=== PATIENT | female | born 1955 | race Caucasian/White ===

== ENCOUNTER 2017-05-06 13:30 | Inpatient (IN) | payer OTHER ==
[~2017-05-06] VITALS: Ht 162.6 cm; Wt 87.5 kg
[~2017-05-06 13:30] MED LIST: AMBIEN5 MG PO; CALAN PO; CIPRO500 MG PO; LISINOPRIL40 MG PO; SYNTH PO; TYLENOL ARTHRI650 MG PO; ZOLOFT25 MG PO
[2017-05-10] MEDS ORDERED: FLAGYL500MG PO (08:41)
[2017-05-10] MEDS ORDERED: TYLENOL-CODEINE1 TA1 PO (08:41)
[2017-05-10] MEDS ORDERED: COLACE100 MG PO (08:41)
== END 2017-05-10 09:48 | disposition home or self-care (01) | DRG 743 ==
LOC: O/R 05-09 05:10 → RECOVERY 05-09 07:00 → OB/GYN 05-09 11:07 → RECOVERY 05-09 13:30 → OB/GYN 05-10 09:48
PROVIDERS: Obstetrics & Gynecology
PROC: 0UT74ZZ Resection of Bilateral Fallopian Tubes, Percutaneous Endoscopic Approach (ICD-10-PCS; 2017-05-09)
PROC: 0USG4ZZ Reposition Vagina, Percutaneous Endoscopic Approach (ICD-10-PCS; 2017-05-09)
PROC: 0UT94ZZ Resection of Uterus, Percutaneous Endoscopic Approach (ICD-10-PCS; principal; 2017-05-09 07:00)
DX: D26.1 Other benign neoplasm of corpus uteri (principal); N83.292 Other ovarian cyst, left side; N83.291 Other ovarian cyst, right side; N85.01 Benign endometrial hyperplasia; I11.9 Hypertensive heart disease without heart failure; N72 Inflammatory disease of cervix uteri; I25.10 Atherosclerotic heart disease of native coronary artery without angina pectoris; G47.00 Insomnia, unspecified; E03.8 Other specified hypothyroidism